=== PATIENT | female | born 1980 | race Two or more races ===

== ENCOUNTER 2022-11-09 15:14 | Emergency (ER) | payer MEDICAID ==
[~2022-11-09] VITALS: Ht 175.3 cm; Wt 74.4 kg
--- NOTE | 2022-11-09 15:42 | NUR ---
PT STATES "I WAS ADVISED TO GO TO ED S/P BLOOD GLUCOSE 341. A1C 12.3 DRAWN YESTERDAY".
--- NOTE | 2022-11-09 15:48 | NUR ---
IV ACCESS ESTABLISHED 20G RIGHT AC. BLOOD DRAWN AND SENT TO LAB.
[2022-11-09] MEDS ORDERED: IV NS 0.9% 1,000 ML BAG IV ONE (16:30)
[2022-11-09 17:07] LABS: BASOPHILS % (AUTO) 0.4 % (0.0-2.0); EOSINOPHILS % (AUTO) 3.9 % (0.0-6.0); HEMATOCRIT 49 % (33-45); HEMOGLOBIN 16.6 g/dL (11.5-14.8); LYMPHOCYTES # (AUTO) 2.5 K/uL (0.8-4.8); LYMPHOCYTES % (AUTO) 36.2 % (20.0-44.0); MEAN CORPUSCULAR HGB CONC 34 g/dl (31.0-36.0); MEAN CORPUSCULAR VOLUME 96 fL (82-100); MONOCYTES # (AUTO) 0.5 K/uL (0.1-1.30); MONOCYTES % (AUTO) 7.5 % (2.0-12.0); NEUTROPHILS # (AUTO) 3.6 K/uL (1.8-8.9); PLATELET COUNT (AUTO) 314 K/uL (150-450); RED BLOOD CELL COUNT(AUTO) 5.07 MIL/uL (4.0-5.2)
[2022-11-09 17:18] LABS: CALCIUM, SERUM 9.6 mg/dL (8.5-10.1); CREATININE 0.8 mg/dL (0.6-1.3); POTASSIUM 3.7 mmol/L (3.5-5.1)
[2022-11-09 17:23] LABS: ALBUMIN 3.8 g/dL (3.4-5.0); BILIRUBIN,DIRECT 0.1 mg/dL (0.0-0.2); BILIRUBIN,TOTAL 0.5 mg/dL (0.2-1.0); TOTAL PROTEIN, SERUM 7.6 g/dL (6.4-8.2)
--- NOTE | 2022-11-09 17:23 | NUR ---
URINE SAMPLE COLLECTED AND SENT TO LAB
[2022-11-09 17:36] LABS: BILIRUBIN,URINE NEGATIVE (NEGATIVE); COLOR,URINE YELLOW (YELLOW); LEUKOCYTE ESTERASE ,URINE NEGATIVE (NEGATIVE); NITRITE, URINE NEGATIVE (NEGATIVE); PROTEIN,URINE NEGATIVE (NEGATIVE); UGLUCOSE 3+ mg/dL (NEGATIVE); UROBILINOGEN,URINE 0.2 EU/dL (0.2)
[2022-11-09 18:32] LABS: BACTERIA,URINE None seen /HPF (None Seen); RBC,URINE NONE SEEN /HPF (0-2); WBC,URINE NONE SEEN /HPF (0-3)
[2022-11-09] MEDS ORDERED: METF-440 PO (19:25)
--- NOTE | 2022-11-09 19:29 | NUR ---
Patient discharged to home in stable condition. Written and verbal after care instructions given. Patient verbalizes understanding of instruction. IV removed. Catheter intact and site benign. Pressure and 4x4 applied to site. No bleeding noted.
[2022-11-09 19:30] VITALS: BP 132/78
== END 2022-11-09 19:31 | disposition home or self-care (01) ==
LOC: ER 15:21
DX: E11.65 Type 2 diabetes mellitus with hyperglycemia (principal); F17.200 Nicotine dependence, unspecified, uncomplicated; E86.0 Dehydration; R63.1 Polydipsia; R35.89 Other polyuria; R82.4 Acetonuria; R81 Glycosuria
CPT/HCPCS: 99283; 96360; 85025; 80048; 82010; 80076; 81001; 36415; 82962; J7030